=== PATIENT | male | born 1940 | race Caucasian/White ===

== ENCOUNTER 2018-07-27 06:05 | Day surgery (SDC) | payer MEDICARE, OTHER ==
[~2018-07-27] VITALS: Ht 175.3 cm; Wt 84.7 kg
[2018-07-27 07:14] VITALS: Ht 175.3 cm; Wt 84.7 kg
[2018-07-27 07:22] VITALS: BP 157/76; PULSE 69; RESP 18
--- NOTE | 2018-07-27 07:29 | PREAC ---
Date/Time of Note Date/Time of Note DATE: 07/27/18 TIME: 07: Anesthesia Eval and Record Evaluation Time Pre-Procedure Interview DATE: 07/27/18 TIME: : Age 77 Sex male NPO: 8 hrs Preoperative diagnosis abdominal pain, change in bowel habits Planned procedure EGD, colonoscopy Past Medical History Past Medical History: Includes Cardio: HTN, Dyslipidemia Renal: CKD GI: Other (history of polyps in colon) Surgery & Anesthesia Issues No known issue Meds Anticoagulation: No Beta Yusuf within 24 hr: No Reason Beta Yusuf not given: Pt. not on B-Yusuf Meds reviewed: Yes Allergies Coded Allergies: penicillin G (Verified Allergy, Unknown, 04/21/09) Allergies Reviewed: Yes Labs/Studies Labs Reviewed: Reviewed by anesthesiologist test: N/A Pre-procedure Exam Last vitals Vital Signs Date Temp Pulse Resp B/P (MAP) Pulse Ox O2 O2 Flow FiO2 Time Delivery Rate 07/27/18 98.5 69 18 157/76 94 Room Air 07:22 (103) Airway: Adequate mouth opening, Adequate thyromental dist Mallampati: Mallampati II Teeth: Normal Lung: Normal Heart: Normal ASA Physical Status ASA physical status: 2 Emergency: None Planned Anesthetic General/MAC: Mask Planned Pain Management Parenteral pain med Pre-operative Attestations Prior to commencing anesthesia and surgery, the patient was re-evaluated, there was verification of: *The patient's identity *The results of appropriate recent lab work and preoperative vital signs *The above evaluation not changing prior to induction *Anesthetic plan, risk benefits, alternative and complications discussed with patient/family; questions answered; patient/family understands, accepts and wishes to proceed. HERLINDA GALLARDO MD July 27, 2018 07:29
[2018-07-27] MEDS ORDERED: LIDOCAINE 2% (SDV) 5 ML INJ ONE (07:33)
[2018-07-27] MEDS ORDERED: PROPOFOL 40 ML ONE (07:33)
[2018-07-27] MEDS ORDERED: NO DAILY MEDS (07:37)
[2018-07-27] MEDS ORDERED: ONDANSETRON 4 MG INJ IV PRN (08:00)
[2018-07-27] MEDS ORDERED: PROPOFOL 20 ML ONE (08:30)
--- NOTE | 2018-07-27 08:40 | PAC ---
Date/Time of Note Date/Time of Note DATE: 07/27/18 TIME: 08:39 Post-Anesthesia Notes Post-Anesthesia Note Last documented vital signs Vital Signs Date Temp Pulse Resp B/P (MAP) Pulse Ox O2 O2 Flow FiO2 Time Delivery Rate 07/27/18 98.5 69 18 157/76 94 Room Air 07:22 (103) Activity: WNL Respiratory function: WNL Cardiovascular function: WNL Mental status: Baseline Pain reasonably controlled: Yes Hydration appropriate: Yes Nausea/Vomiting absent: Yes Comments BP: 118/70 HR: 61 RR: 15 T: 98 SaO2: 100% HERLINDA GALLARDO MD July 27, 2018 08:40
[2018-07-27 09:00] VITALS: BP 149/71; PULSE 62; RESP 18
--- NOTE | 2018-07-28 07:01 | CONS ---
DATE OF ADMISSION: 07/27/2018 DATE OF CONSULTATION: PATIENT NAME: JAMILAH NATHAN TYPE OF CONSULTATION: Preoperative gastroenterology. Dear Dr. Prieto: I thank you very much for this kind referral. HISTORY OF PRESENT ILLNESS: Mr. Jamilah Nathan is a 77-year-old male patient who has been referred to me for further evaluation of upper abdominal pain not responding to therapy with Nexium and Zanta c. His appetite has been poor and he has been losing weight. The patient went to the emergency room and he had abdominal ultrasound done and no definite abnormality was detected. He also complains of change in the bowel habit with constipation. He has been taking Linzess. He also has got anemia. No past history of peptic ulcer disease. Not on nonsteroidal anti-inflammatory agents. No history o f gallstones or liver disease. PAST MEDICAL HISTORY: The patient has history of colon polyps. He has hypertension. Not a diabetic . The patient has got chronic kidney disease. He has hyperlipidemia. He is status post surgery for prostate cancer. He also had appendectomy. SOCIAL HISTORY: Nonsmoker. No alcohol abuse. FAMILY HISTORY: No family history of gastrointestinal tract neoplasm. ALLERGIES: PENICILLIN. MEDICATIONS: 1. Nexium 40 mg p.o. daily. 2. Zantac 150 mg p.o. b.i.d. 3. Linzess 145 mcg p.o. daily. PHYSICAL EXAMINATION: VITAL SIGNS: He is 5 feet, 7 inches tall and weighs 185 pounds, BMI 29, blood pressure 132/84. HEART: Normal heart sounds. LUNGS: Clear. ABDOMEN: Soft. No masses. Normal bowel sounds. NEUROLOGIC: Normal. IMPRESSION: 1. Upper abdominal pain associated with loss of appetite and weight loss. 2. The patient has been taking Nexium and Zantac without relief. 3. The patient went to the emergency room and he had abdominal ultrasound done and no specific abnor mality was detected. 4. The patient also has got anemia with a hemoglobin of 12.7. 5. Change in the bowel habit with constipation. 6. The patient has been taking Linzess. 7. History of hypertension. 8. Chronic kidney disease with elevated creatinine. 9. Hyperlipidemia. 10. Status post surgery for prostate cancer. 11. Elevated body mass index. 12. ALLERGIC TO PENICILLIN. PLAN: 1. Follow up with the primary MD for the elevated BMI. 2. Abdominal CT scan, upper endoscopy and colonoscopy for further evaluation. 3. Because of the elevated serum creatinine, abdominal CT scan will be done without any intravenous contrast. 4. Follow up with the primary MD for the management of hypertension. The procedures and possible complications were well explained to the patient. He understands and con sents to the procedures. I thank you once again. With warmest personal regards, Dictated By: MARIUM VILLALBA/JOAQUÍN Conf#: [id number] DID#: [id number]
== END 2018-07-27 11:04 | disposition home or self-care (01) ==
LOC: GIL 06:05
PROVIDERS: ATTEND Internal Medicine Gastroenterology
DX: R19.4 Change in bowel habit (principal); K64.8 Other hemorrhoids; D12.5 Benign neoplasm of sigmoid colon; K21.9 Gastro-esophageal reflux disease without esophagitis; K29.50 Unspecified chronic gastritis without bleeding; I12.9 Hypertensive chronic kidney disease with stage 1 through stage 4 chronic kidney disease, or unspecified chronic kidney disease; N18.9 Chronic kidney disease, unspecified
CPT/HCPCS: 88305; 88312